=== PATIENT | female | born 1975 | race Caucasian/White ===

== ENCOUNTER 2019-08-04 19:59 | Inpatient (IN) | payer OTHER ==
[~2019-08-04] VITALS: Ht 170.2 cm; Wt 93.4 kg
[2019-08-04 20:03] VITALS: BP 160/90
--- NOTE | 2019-08-04 20:05 | NUR ---
TO ED 05, AMBULATORY, REPORT TO SERA LOYA.
--- NOTE | 2019-08-04 20:10 | NUR ---
PATEINT STATES SHE HAS HAD SUDDEN ONSET ABD PAIN ON AND OFF FOR 1 MONTH. STATES TODAY IT WAS WORSE. PATIENT DIAPHORETIC AND HUNCHED OVER IN PAIN DURING ASSESSMENT. MID ABD TENDERNESS NOTED. 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 NO MEDICAL HX REPORTED. LUNGS CLEAR BILATERALLY. AAO. PATIENT LAYING IN BED, BE LOW LOCKED WITH SIDE RAIL UP ON ONE SIDE. AT BEDSIDE.
[2019-08-04] MEDS ORDERED: NACL 0.9% 1,000 ML IV ONE (20:15)
[2019-08-04] MEDS ORDERED: KETOROLAC 30 MG/ML VIAL IVP ONE (20:15)
[2019-08-04] MEDS ORDERED: ONDANSETRON 4 MG/2 ML VIAL IVP ONE (20:15)
[2019-08-04] MEDS ORDERED: MORPHINE SULFATE 2 MG/ML SYR IVP ONE ×2 (20:35→20:55)
--- NOTE | 2019-08-04 20:35 | NUR ---
PATIENT TAKEN TO CT IN [facility]. WILL GIVE MORPHINE ORDERED UPON RETURN.
--- NOTE | 2019-08-04 20:39 | NUR ---
Note undone in EDM - 08/04/19 at 2039 by NIURKA PATEINT STATES SHE HAS HAD SUDDEN ONSET ABD PAIN ON AND OFF FOR 1 MONTH. STATES TODAY IT WAS WORSE. PATIENT DIAPHORETIC AND HUNCHED OVER IN PAIN DURING ASSESSMENT. MID ABD TENDERNESS NOTED. 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 NO MEDICAL HX REPORTED. LUNGS CLEAR BILATERALLY. AAO. PATIENT LAYING IN BED, BE LOW LOCKED WITH SIDE RAIL UP ON ONE SIDE. AT BEDSIDE.
[2019-08-04 20:41] LABS: BASOPHILS % (AUTO) 0.4 % (0.0-2.0); EOSINOPHILS # (AUTO) 0.1 K/uL (0-0.4); EOSINOPHILS % (AUTO) 0.6 % (0.0-4.0); HEMATOCRIT 37.6 % (36-48); HEMOGLOBIN 12.5 g/dL (12.0-16.0); LYMPHOCYTES # (AUTO) 3.4 K/uL (2.5-16.5); LYMPHOCYTES % (AUTO) 35.3 % (20.5-51.1); MEAN CORPUSCULAR HEMOGLOBIN 26 pg (27-31); MEAN CORPUSCULAR HGB CONC 33 g/dL (33-37); MEAN CORPUSCULAR VOLUME 77.9 fL (80-94); MONOCYTES # (AUTO) 0.6 K/uL (0.8-1.0); MONOCYTES % (AUTO) 6.8 % (1.7-9.3); NEUTROPHILS # (AUTO) 5.4 K/uL (1.8-7.7); NEUTROPHILS % (AUTO) 56.9 % (42.2-75.2); PLATELET COUNT (AUTO) 403 K/uL (140-450); RED BLOOD CELL COUNT(AUTO) 4.83 MIL/uL (4.20-5.40); RED CELL DISTRIBUTION WIDTH 13.7 % (11.6-13.7); WHITE BLOOD COUNT (AUTO) 9.5 K/uL (4.8-10.8)
[2019-08-04 20:55] LABS: BARBITURATE, URINE NEG. ng/ml (NEG <=200); BENZODIAZEPINE, URINE NEG. ng/mL (NEG <=200); CANNABINOID, URINE POS. ng/mL (NEG <=50); COCAINE, URINE NEG. ng/mL (NEG <=300); OPIATE, URINE NEG. ng/mL (NEG <=2000); PHENCYCLIDINE SCREEN,URINE NEG. ng/mL (NEG <=25)
[2019-08-04 20:58] LABS: ALBUMIN 3.4 g/dL (3.4-5.0); ANION GAP 16.4 (8-16); CARBON DIOXIDE 24.7 mmol/L (21-32); CREATININE 0.8 mg/dL (0.6-1.3); POTASSIUM 3.1 mmol/L (3.5-5.1); TOTAL BILIRUBIN 0.3 mg/dL (0.0-1.0)
[2019-08-04] MEDS ORDERED: metroNIDAZOLE 500 MG/NS PREMIX 100 ML IV ONE (21:20)
--- NOTE | 2019-08-04 21:23 | NUR ---
PATIENT NG TUBE PLACED IN LEFT NARE. PATIENT TOLERATED WELL. STOMACH CONTENTS SEEN IN TUBE. Addendum: 08/04/19 at 2123 by NIURKA ASCULATED TO VERIFY PLACEMENT. ORDERED XRAY TO VERIFY PLACEMENT.
[2019-08-04] MEDS ORDERED: diphenhydrAMINE 50 MG/ML VIAL IVP ONE (21:25)
[2019-08-04] MEDS ORDERED: HYDROmorphone PFS 2 MG/ML SYR IVP ONE (21:25)
--- NOTE | 2019-08-04 21:30 | NUR ---
PATIENT STATES CONTINUED PAIN 03/24. DR FOWLER MADE AWARE.
[2019-08-04] MEDS ORDERED: HYDROcodone/APAP 7.5/325 MG 1 TAB PO PRN (21:40)
[2019-08-04] MEDS ORDERED: DOCUSATE SODIUM 100 MG GELCAP PO PRN (21:40)
[2019-08-04] MEDS ORDERED: ACETAMINOPHEN 325 MG TAB PO PRN (21:40)
[2019-08-04] MEDS ORDERED: ONDANSETRON 4 MG/2 ML VIAL IM/IVP PRN (21:40)
--- NOTE | 2019-08-04 21:40 | NUR ---
XRAY AT BEDSIDE.
[2019-08-04] MEDS ORDERED: POTASSIUM CHL 20MEQ/D5-NS 1,000 ML IV SCH (22:00)
[2019-08-04 22:17] LABS: CHOL/HDL RATIO 3.5 (1-4.5); FREE T4 (FREE THYROXINE) 1.07 ng/dL (0.76-1.46); MAGNESIUM 1.8 mg/dL (1.8-2.4); PHOSPHORUS 1.7 mg/dL (2.5-4.9); THYROID STIMULATING HORMONE 4.37 uIU/mL (0.34-3.74)
[2019-08-04 22:31] LABS: PROTHROMBIN TIME 9.3 secs (10.8-13.4)
[2019-08-04 22:35] VITALS: BP 143/78
[2019-08-04 22:35] LABS: APPEARANCE,URINE SL CLOUDY (CLEAR); BILIRUBIN,URINE NEGATIVE (NEGATIVE); BLOOD, URINE TRACE-I (NEGATIVE); COLOR,URINE YELLOW (YELLOW); LEUKOCYTE ESTERASE ,URINE 1+ (NEGATIVE); NITRITE, URINE NEGATIVE (NEGATIVE); PH,URINE 7.5 (5.0-9.0); UGLUCOSE NEGATIVE (NEGATIVE)
--- NOTE | 2019-08-04 22:35 | NUR ---
PATIENT ADMITTED TO BED 112-A MED SURG UNIT. PATIENT ADMITTED UNDER THE CARE OF DR. DEL VALLE. REPORT GIVEN TO OFELIA ZAMORA. PATIENT STABLE AT TIME OF TRANSFER. GAVIN AND SKYLER RUNNING IN [facility].
--- NOTE | 2019-08-04 22:35 | NUR ---
RECEIVED BEDSIDE REPORT FROM SHANTANU DIRECTOR OF GROUP COUNSELING PROGRAM. PT IS AWAKE BUT DROWSY. RESPONDS TO NAME. IS AAOX4. PT'S RESPIRATIONS ARE 12 EQUAL AND UNLABORED. LUNG SOUNDS ARE CLEAR. SKIN IS INTACT. C/C EPIGASTRIC PAIN X1 MO. WORSE TODAY. DX INTUSSUSCEPTION. WILL HAVE EMERGENCY SURGERY TONIGHT WITH SURGEON YAO. PT STATES LAST MEAL WAS TODAY AT 1800 AND HAD A BEER. CURRENTLY DENIES NAUSEA. HAS NGT ON L NOSTRIL TO GRAVITY. IV ON LAC 20G CURRENTLY ON K RIDER FOR K 3.1. PT NPO VERBALIZED UNDERSTANDING. IS AT BEDSIDE. MRSA SWAB OBTAINED. VS: 143/78 HR 87 RR 12 100% RA. PT WITH PAIN 8/10 HAS NOT HAD RELIEF PT RECEIVED MORPHINE BEFORE TRANSFERRING TO FLOOR. WILL REASSESS IN A FEW MINUTES. ORIENTED PT TO ROOM,STAFF, VISITING HOURS, AND CALL LIGHT. HARRISON MANAGER PUBLIC IS AT BEDSIDE ALSO DOING HER ASSESSMENT.
[2019-08-04] MEDS ORDERED: BUPIVACAINE-MPF 0.5% 30 ML VIAL INJ ONE (22:50)
--- NOTE | 2019-08-04 22:50 | NUR ---
PATIENT TAKEN TO OR AT THIS TIME. PT LEFT IN STABLE CONDITION.
[2019-08-04] MEDS ORDERED: ONDANSETRON 4 MG/2 ML VIAL ONE (23:06)
[2019-08-04] MEDS ORDERED: DEXAMETHASONE 4 MG/ML VIAL ONE (23:06)
[2019-08-04] MEDS ORDERED: fentaNYL 0.05 MG/ML VIAL ONE (23:06)
[2019-08-04] MEDS ORDERED: KETOROLAC 30 MG/ML VIAL ONE (23:06)
[2019-08-04] MEDS ORDERED: HYDROmorphone PFS 2 MG/ML SYR ONE (23:06)
[2019-08-04] MEDS ORDERED: SUCCINYLCHOLINE CHLORIDE 200 MG/10 ML VIAL IVP ONE (23:06)
[2019-08-04] MEDS ORDERED: ROCURONIUM 50 MG/5 ML VIAL IV ONE (23:06)
[2019-08-04] MEDS ORDERED: DESFLURANE 240 ML BTL INH ONE (23:06)
[2019-08-04] MEDS ORDERED: PROPOFOL 200 MG/20 ML VIAL IV ONE (23:06)
[2019-08-04 23:49] LABS: WBC,URINE 20-60 /HPF (0-5)
[2019-08-05] MEDS ORDERED: PIPERACILLIN/TAZOBACTAM 2.25 GM VIAL IV ONE (01:58)
[2019-08-05] MEDS ORDERED: HYDROmorphone 1 MG/ML AMP IVP PRN (02:05)
[2019-08-05] MEDS ORDERED: ONDANSETRON 4 MG/2 ML VIAL IVP PRN (02:05)
[2019-08-05 02:35] VITALS: BP 123/65
--- NOTE | 2019-08-05 02:35 | NUR ---
PATIENT IS BACK FROM OR BROUGHT IN BY BED. PT IS AAOX4. RESPIRATIONS ARE EQUAL AND UNLABORED. HAD EXPLORATORY LAPAROTOMY WITH SMALL BOWEL RESECTION WITH DR SAMAYOA. PT WITH VERTICAL INCISION COVERED WITH DRESSING WITH MINIMAL BLOODY DRAINAGE. SURGICAL INCISION WITH RAVIN PER REPORT. VS:123/63 HR 85 98.3 RR 12 DENIES PAIN AT THIS TIME. PT WITH BARRAGAN WAS DRAINED BEFORE COMING. CONNECTED NGT TO INTERMITTENT SUCTION PER ORDERS. IV ON LAC 20G SL AND NEW IV ON R HAND 18G CONNECTED IVF 20MEQKCL/D5NS AT 150M/H FOR K 3.1. MOTHER AND ARE AT BEDSIDE. CALL LIGHT IS WITHIN REACH. WILL CONTINUE TO MONITOR. Addendum: 08/05/19 at 0323 by Tonja Hanna RN RECEIVED BEDSIDE REPORT FROM HARRISON ZAMORA.
[2019-08-05] MEDS: DEXT 5% /NACL 0.9% 1,000 ML IV SCH ×3 (02:54→18:17)
--- NOTE | 2019-08-05 03:20 | NUR ---
VITAL SIGNS ARE WITHIN NORMAL LIMITS. PT IS SLEEPING COMFORTABLY IN BED WITH EYES CLOSED. CHEST RISE AND FALL. CALL LIGHT IS WITHIN REACH. MOTHER IS AT BEDSIDE. WILL CONTINUE TO MONITOR PATIENT'S VITAL SIGNS.
[2019-08-05] MEDS ORDERED: metroNIDAZOLE 500 MG/NS PREMIX 100 ML IV ONE (04:56)
[2019-08-05] MEDS ORDERED: metroNIDAZOLE 250 MG/NS PREMIX 50 ML IV SCH (05:00)
--- NOTE | 2019-08-05 05:02 | NUR ---
FLAGYL IS NOW INFUSING PER ORDERS. PT'S VSS REMAIN WITHIN NORMAL LIMITS. PER PT PAIN HAS IMPROVED SIGNIFICANTLY. PT STATES, "I HAVE A LITTLE BIT OF PAIN FROM SURGERY BUT, IT IS NOTHING COMPARED TO THE PAIN EARLIER. MOTHER IS AT BEDSIDE. CALL LIGHT IS WITHIN REACH. WILL CONTINUE TO MONITOR.
[2019-08-05] MEDS ORDERED: PIPERACILLIN/TAZOBACTAM 3.375 GM VIAL IV ONE (06:02)
[2019-08-05] MEDS: PIPERACILLIN/TAZOBACTAM 3.375 GM in DEXTROSE 5% 50 ML IV SCH ×3 (06:12→18:17)
[2019-08-05 06:20] LABS: BASOPHILS % (AUTO) 0.2 % (0.0-2.0); HEMOGLOBIN 11.1 g/dL (12.0-16.0); LYMPHOCYTES # (AUTO) 0.3 K/uL (2.5-16.5); MEAN CORPUSCULAR HEMOGLOBIN 26 pg (27-31); MEAN CORPUSCULAR HGB CONC 34 g/dL (33-37); MEAN CORPUSCULAR VOLUME 78.3 fL (80-94); MONOCYTES % (AUTO) 5.9 % (1.7-9.3); NEUTROPHILS # (AUTO) 15.2 K/uL (1.8-7.7); NEUTROPHILS % (AUTO) 91.9 % (42.2-75.2); PLATELET COUNT (AUTO) 261 K/uL (140-450); RED BLOOD CELL COUNT(AUTO) 4.22 MIL/uL (4.20-5.40); RED CELL DISTRIBUTION WIDTH 13.6 % (11.6-13.7); WHITE BLOOD COUNT (AUTO) 16.5 K/uL (4.8-10.8)
--- NOTE | 2019-08-05 07:19 | NUR ---
GAVE BEDSIDE REPORT TO DAY RN. PT ENDORSED IN STABLE CONDITION.
--- NOTE | 2019-08-05 07:20 | NUR ---
BEDSIDE REPORT RECEIVED FROM NIGHT NURSE. PATIENT IN STABLE CONDITION. PATIENT IS ASLEEP, EASILY AROUSABLE TO NAME OR TOUCH. SKIN WARM AND DRY TO TOUCH. NGT IN PLACE TO LEFT NOSTRIL, INTERMITTENT SUCTION INTACT WITH NO DRAINAGE NOTED. IV INTACT AND PATENT TO RIGHT HAND AND LEFT AC. ABDOMINAL INCISION INTACT WITH DRY DRESSING. BARRAGAN CATHETER IN PLACE, DRAINING YELLOW COLORED URINE. SAFETY MEASURES IN PLACE. CALL LIGHT WITHIN REACH.
[2019-08-05 07:39] LABS: ANION GAP 13.1 (8-16); CREATININE 0.7 mg/dL (0.6-1.3); POTASSIUM 4.1 mmol/L (3.5-5.1)
[2019-08-05 08:00] VITALS: BP 119/70
--- NOTE | 2019-08-05 08:17 | NUR ---
PATIENT HAS BEEN SCREENED AND CATEGORIZED MODERATE NUTRITION RISK. PATIENT WILL BE SEEN WITHIN 3-5 DAYS OF ADMISSION. 08/07/19 08/09/[address]
[2019-08-05] MEDS ORDERED: INSULIN LISPRO SLIDING SCALE 100 UNITS/ML VIAL SUBQ PRN (08:25)
[2019-08-05] MEDS ORDERED: DEXTROSE 50% 50 ML SYR IVP PRN (08:25)
[2019-08-05 08:30] LABS: CHOL/HDL RATIO 3.3 (1-4.5)
[2019-08-05] MEDS: MORPHINE SULFATE 2 MG/ML SYR IVP PRN ×4 (08:47→18:34)
[2019-08-05] MEDS: PANTOPRAZOLE 40 MG INJ VIAL IVP SCH (08:48)
--- NOTE | 2019-08-05 09:00 | NUR ---
AM MEDICATIONS GIVEN ORDERED. PATIENT IS AAOX4. PATIENT MEDICATED FOR SEVERE PAIN TO ABDOMINAL INCISION. NO DISTRESS NOTED. PT REMAIN STABLE. CALL LIGHT WITHIN REACH. FAMILY AT BEDSIDE.
[2019-08-05] MEDS ORDERED: SODIUM PHOSPHATE 15 MMOLE in NACL 0.9% 250 ML IV SCH (09:30)
[2019-08-05] MEDS: BLOOD GLUCOSE MONITORING 1 DEV DEV FS SCH ×3 (11:56→20:29)
--- NOTE | 2019-08-05 12:00 | NUR ---
PATIENT IS C/O SEVERE PAIN TO ABDOMEN, MEDICATED ORDERED. PATIENT IS AAOX4. NO S/S OF DISTRESS NOTED. NGT INTACT TO LOW INTERMITTENT SUCTIONING. NOTED OUTPUT 100ML, WITH DARK TO BROWN LIQUID. BARRAGAN INTACT AND PATENT WITH CLEAR YELLOW COLORED URINE. SAFETY MEASURES IN PLACE. WILL CONTINUE TO MONITOR. CALL LIGHT WITHIN REACH.
--- NOTE | 2019-08-05 13:55 | NUR ---
DC [age] YRS OLD FEMALE PATIENT WAS ADMITTED FROM HOME WITH A DX OF INTUSSUSCEPTION. HAS A HX OF GESTATIONAL DM AND METRORRHAGIA. CT ABD/PELVIS SHOWED INTUSSUSCEPTION INVOLVING THE SMALL BOWEL IN THE LEFT ABDOMEN. INSERTED NGT STARTED ON IV FLAGYL PAIN CONTROL AND SURGERY CONSULT WITH DR SAMAYOA. DC PLAN TO GO HOME WHEN STABLE CM TO FOLLOW Addendum: 08/08/19 at 1158 by Mar Gipson CM CURRENT LABS INCLUDE WBC 8.0, H/H 9.3/27.4, NA/K 142/3.4, BUN/CREA 4/0.6. UDS SHOWED POSTIVE FOR CANNABINOIDS. SURGICAL CONSULT IN PLACE. POST OP #3 - S/P EX LAP WITH SMALL BOWEL RESECTION. ON ZOSYN. DC PLAN BACK TO HOME ONCE STABLE.
--- NOTE | 2019-08-05 14:17 | NUR ---
NOTIFIED DR. REINA IN REGARDS TO PATIENT HAVING SEVERE PAIN. PATIENT STATED SHE'S STILL HAVING INCREASED PAIN NOW. MORPHINE NOT DUE YET. DOCTOR NOTIFIED, DOCTOR TO SEE PATIENT.
[2019-08-05] MEDS ORDERED: KETOROLAC 30 MG/ML VIAL IVP PRN ×2 (14:20→16:55)
--- NOTE | 2019-08-05 15:46 | NUR ---
PATIENT MEDICATED FOR SEVERE PAIN TO ABDOMINAL INCISION WITH MORPHINE 3MG ORDERED. WILL CONTINUE TO MONITOR.
[2019-08-05 16:00] VITALS: BP 117/57
--- NOTE | 2019-08-05 17:06 | NUR ---
PATIENT IS AWAKE, VERBALLY RESPONSIVE. PATIENT STILL C/O ABDOMINAL PAIN /, MEDICATED WITH TORADOL 30MG IVP. NGT INTACT AND ON INTERMITTENT SUCTION. BARRAGAN CATHETER IN PLACE AND DRAINING CLEAR YELLOW COLORED URINE. CALL LIGHT WITHIN REACH. FAMILY AT BEDSIDE.
--- NOTE | 2019-08-05 18:54 | NUR ---
PATIENT REMAINS IN STABLE CONDITION. WILL ENDORSE TO PORTABLE POWER TOOL REPAIRER FOR CONTINUITY OF CARE.
--- NOTE | 2019-08-05 19:30 | NUR ---
RECEIVED BEDSIDE SHIFT REPORT FROM DAY SHIFT NURSE. TOOK OVER CARE FOR PT. PT IS AWAKE, A&OX4. ABLE TO FOLLOW COMMANDS. NGT IS IN PLACE IN LEFT NOSTRIL CONNECTED TO SUCTION SET ON INTERMITTENT SUCTIONING. SKIN IS DRY, WARM AND INTACT. BARRAGAN CATHETER IS NOTED W/ CLEAR YELLOW URINE W/ NO SEDIMENTS. IV CATHETERS NOTED IN LEFT AC 20G AND RIGHT HAND 18 G. BOTH IV SITES ARE INTACT AND PATENT. PT HAS D5 NS RUNNING AT 100 ML. ABDOMINAL INCISION IS DRY AND INTACT. PT HAS 5/10 ABDOMINAL PAIN. BED IS IN LOWEST POSITION AND LOCKED, PT PLACED IN SEMI FOWLERS POSITION AND CALL LIGHT IS IN REACH. WILL INITIATE PAIN CONTROL MEASURES.
[2019-08-05] MEDS: METHOCARBAMOL 1000 MG/10 ML VIAL IV SCH (20:11)
--- NOTE | 2019-08-05 21:54 | NUR ---
SPOKE W/ MD REGARDING PT C/O SWOLLEN HANDS. MD SAID TO DECREASE IV FLUID FROM 100 ML/HR TO 80 ML/HR.
[2019-08-06] VITALS: BP 110/61
--- NOTE | 2019-08-06 | NUR ---
CHECKED UP ON PT. PT ASLEEP. NO DISTRESS NOTED. BED IS LOWEST POSITION, LOCKED AND CALL LIGHT IS WITHIN REACH. WILL CONTINUE TO MONITOR
[2019-08-06] MEDS: PIPERACILLIN/TAZOBACTAM 3.375 GM in DEXTROSE 5% 50 ML IV SCH ×5 (00:44→23:57)
--- NOTE | 2019-08-06 03:15 | NUR ---
CHECKED IN ON PT. PT ASLEEP. NO DISTRESS NOTED. BED LOCK, LOWEST POSITION, AND CALL LIGHT WITHIN REACH. WILL CONTINUE TO MONITOR
[2019-08-06] MEDS: METHOCARBAMOL 1000 MG/10 ML VIAL IV SCH ×3 (04:10→20:48)
[2019-08-06] MEDS: DEXT 5% /NACL 0.9% 1,000 ML IV SCH (04:38)
[2019-08-06] MEDS: BLOOD GLUCOSE MONITORING 1 DEV DEV FS SCH ×4 (05:44→21:06)
--- NOTE | 2019-08-06 05:45 | NUR ---
ASSESSED PT BG. BG 127. ADMINISTERED SCHEDULED MEDICATIONS. BED LOWEST POSITION, LOCKED AND CALL LIGHT WITHIN REACH. WILL CONTINUE TO MONITOR
[2019-08-06 05:58] LABS: ANION GAP 8.2 (8-16); CREATININE 0.7 mg/dL (0.6-1.3); POTASSIUM 3.2 mmol/L (3.5-5.1)
[2019-08-06 06:02] LABS: MAGNESIUM 1.7 mg/dL (1.8-2.4); PHOSPHORUS 1.6 mg/dL (2.5-4.9)
[2019-08-06 06:41] LABS: BASOPHILS % (AUTO) 0.2 % (0.0-2.0); EOSINOPHILS % (AUTO) 0.1 % (0.0-4.0); HEMOGLOBIN 9.8 g/dL (12.0-16.0); LYMPHOCYTES # (AUTO) 0.9 K/uL (2.5-16.5); MEAN CORPUSCULAR HEMOGLOBIN 26 pg (27-31); MEAN CORPUSCULAR HGB CONC 33 g/dL (33-37); MEAN CORPUSCULAR VOLUME 79.5 fL (80-94); MONOCYTES # (AUTO) 0.8 K/uL (0.8-1.0); MONOCYTES % (AUTO) 6.3 % (1.7-9.3); NEUTROPHILS % (AUTO) 86.4 % (42.2-75.2); PLATELET COUNT (AUTO) 228 K/uL (140-450); RED BLOOD CELL COUNT(AUTO) 3.78 MIL/uL (4.20-5.40); RED CELL DISTRIBUTION WIDTH 14.1 % (11.6-13.7); WHITE BLOOD COUNT (AUTO) 12.7 K/uL (4.8-10.8)
--- NOTE | 2019-08-06 07:22 | NUR ---
ENDORSED PT TO DAY SHIFT NURSE ИВАН ZAMORA, PT STABLE, NO DISTRESS NOTED, CALL LIGHT WITHIN REACH.
--- NOTE | 2019-08-06 07:23 | NUR ---
RECEIVED BEDSIDE REPORT FROM [facility] NURSE JOSELYN. PATIENT IN STABLE CONDITION. SKIN WARM AND DRY TO TOUCH. NGT IN PLACE TO LEFT NOSTRIL, INTERMITTENT SUCTION INTACT WITH NO DRAINAGE NOTED. RESPIRATIONS EVEN AND UNLABORED. IV INTACT AND PATENT. ABDOMINAL INCISION INTACT WITH DRY DRESSING. BARRAGAN CATHETER IN PLACE. SAFETY MEASURES IN PLACE. BED IN LOW POSITION. CALL LIGHT WITHIN REACH AT BEDSIDE. WILL CONTINUE TO MONITOR.
[2019-08-06 08:00] VITALS: BP 119/69
[2019-08-06 08:08] LABS: T4 (THYROXINE) 11.9 ug/dL (4.5-12.0)
[2019-08-06] MEDS ORDERED: MAG SULF 2000 MG/WATER PREMIX 50 ML IV SCH (08:30)
[2019-08-06 09:06] LABS: HEPATITIS A ANTIBODY IGM Negative (Negative); HEPATITIS B CORE AB TOTAL Negative (Negative); HEPATITIS B SURFACE ANTIBODY Non Reactive (.); HEPATITIS B SURFACE ANTIGEN Negative (Negative)
[2019-08-06] MEDS: PANTOPRAZOLE 40 MG INJ VIAL IVP SCH (09:06)
--- NOTE | 2019-08-06 09:25 | NUR ---
XR AT BEDSIDE FOR ACUTE ABD SERIES. PT IN STABLE CONDITION.
[2019-08-06] MEDS: POTASSIUM CHL 20 MEQ/D5-1/2NS 1,000 ML IV SCH ×2 (10:50→19:51)
[2019-08-06] MEDS ORDERED: POTASSIUM PHOSPHATE 15 MM in NACL 0.9% 250 ML IV SCH (11:00)
[2019-08-06] MEDS ORDERED: CALCIUM CHLORIDE 10% 1,000 MG in NACL 0.9% 100 ML IV SCH (11:00)
--- NOTE | 2019-08-06 11:30 | NUR ---
REMOVED BARRAGAN AT THIS TIME. PT TOLERATED WELL.
[2019-08-06] MEDS: MORPHINE SULFATE 2 MG/ML SYR IVP PRN ×2 (11:37→15:45)
--- NOTE | 2019-08-06 11:52 | NUR ---
ASSISTED PT WITH AMBULATING. PT AMBULATED OUT OF ROOM ABOUT 10FT. PT REQUEST TO RETURN TO ROOM DUE TO FEELING DIZZY. WILL CONTINUE TO MONITOR.
--- NOTE | 2019-08-06 13:42 | NUR ---
ASSISTED TO RESTROOM AT THIS TIME. PT TOLERATED WELL. WILL CONTINUE TO MONITOR.
[2019-08-06 16:00] VITALS: BP 123/68
--- NOTE | 2019-08-06 19:29 | NUR ---
GAVE REPORT TO DIRECTOR OF TRANSPORTATION NURSE RIN FOR CONTINUITY OF CARE. PT IN STABLE CONDITION.
--- NOTE | 2019-08-06 19:30 | NUR ---
RECEIVED BEDSIDE REPORT FROM DAY SHIFT NURSE AND TOOK OVER CARE OF PT. PT IS A&OX4, ABLE TO FOLLOW COMMANDS. NGT IN PLACE IN LEFT NOSTRIL CONNECTED TO SUCTION. 250 ML INSIDE SUCTION CONTAINER NOTED. PT IS AMBULATORY AND IS ABLE TO WALK TO BATHROOM W/ ASSISTANCE. PT HAS RIGHT AC 20G, ASYMPTOMATIC, PATENT AND INTACT. ABDOMINAL DRESSINGS IS CDI. PT IS UNABLE TO HAVE FLATUS. UNABLE TO DEFECATE. PT STATED SHE HAS 6/10 ABDOMINAL PAIN. BED IS SEMI FOWLERS IN LOWEST POSITION, LOCKED. LIFESAVING EQUIPMENT IS PLUGGED IN RED OUTLETS. CALL LIGHT IS WITHIN REACH.
--- NOTE | 2019-08-06 22:00 | NUR ---
CHECKED UP ON PT. PT ASLEEP IN SEMI FOWLERS POSITION. BED IN LOWEST POSITION, LOCKED. CALL LIGHT WITHIN REACH. WILL CONTINUE TO MONITOR PT.
[2019-08-07] VITALS: BP 118/71
--- NOTE | 2019-08-07 | NUR ---
CHECKED ON PT. PT ASLEEP. BED IN LOWEST SETTING, LOCKED. CALL LIGHT WITHIN REACH. WILL CONTINUE TO MONITOR
--- NOTE | 2019-08-07 03:00 | NUR ---
CHECKED IN ON PT. PT IN NEED TO VOID. ASSISTED PT TO RESTROOM. NGT RESIDUAL AT 150 ML. Addendum: 08/07/19 at 0406 by Rafael Cohen RN RN PT HAD ABDOMINAL PAIN. SEE PAIN ASSESSMENT/REASSESSMENT
[2019-08-07] MEDS: MORPHINE SULFATE 2 MG/ML SYR IVP PRN ×3 (03:02→15:27)
--- NOTE | 2019-08-07 04:02 | NUR ---
CHECKED ON PT. PT ASLEEP. BED IN LOWEST SETTING, LOCKED. CALL LIGHT WITHIN REACH. WILL CONTINUE TO MONITOR
[2019-08-07] MEDS: METHOCARBAMOL 1000 MG/10 ML VIAL IV SCH ×3 (05:34→20:46)
[2019-08-07] MEDS: PIPERACILLIN/TAZOBACTAM 3.375 GM in DEXTROSE 5% 50 ML IV SCH ×4 (05:35→23:38)
[2019-08-07 06:02] LABS: BASOPHILS % (AUTO) 0.3 % (0.0-2.0); EOSINOPHILS # (AUTO) 0.1 K/uL (0-0.4); EOSINOPHILS % (AUTO) 0.5 % (0.0-4.0); HEMATOCRIT 28.9 % (36-48); HEMOGLOBIN 9.8 g/dL (12.0-16.0); LYMPHOCYTES # (AUTO) 0.8 K/uL (2.5-16.5); LYMPHOCYTES % (AUTO) 7.2 % (20.5-51.1); MEAN CORPUSCULAR HEMOGLOBIN 26 pg (27-31); MEAN CORPUSCULAR HGB CONC 34 g/dL (33-37); MONOCYTES # (AUTO) 0.7 K/uL (0.8-1.0); MONOCYTES % (AUTO) 6.3 % (1.7-9.3); NEUTROPHILS # (AUTO) 9.7 K/uL (1.8-7.7); NEUTROPHILS % (AUTO) 85.7 % (42.2-75.2); PLATELET COUNT (AUTO) 233 K/uL (140-450); RED CELL DISTRIBUTION WIDTH 13.6 % (11.6-13.7); WHITE BLOOD COUNT (AUTO) 11.3 K/uL (4.8-10.8)
[2019-08-07 06:34] LABS: MAGNESIUM 1.9 mg/dL (1.8-2.4); PHOSPHORUS 1.7 mg/dL (2.5-4.9)
[2019-08-07 06:47] LABS: ANION GAP 11.7 (8-16); CARBON DIOXIDE 25.8 mmol/L (21-32); CREATININE 0.8 mg/dL (0.6-1.3); POTASSIUM 3.5 mmol/L (3.5-5.1)
[2019-08-07] MEDS: POTASSIUM CHL 20 MEQ/D5-1/2NS 1,000 ML IV SCH ×2 (06:50→15:10)
--- NOTE | 2019-08-07 06:59 | NUR ---
PT CAME OUT OF THE TOILET WITH NGT ON HER HAND, STATED TO DONY DUQUE THAT IT JUST CAME OUT, AND STATED SHE DOESN'T WANT IT BACK BECAUSE HER THROAT IS ALREADY HURTING, DR HOROWITZ MADE AWARE, STATED WILL CHECK PT.
--- NOTE | 2019-08-07 07:15 | NUR ---
PT AWAKE SITTING UP ON BED, NO SIGNS OF DISTRESS, REPORT GIVEN TO SERA OATES FOR CONTINUITY OF CARE.
--- NOTE | 2019-08-07 07:16 | NUR ---
RECEIVED BEDSIDE REPORT FROM EMPLOYMENT CONSULTANT NURSE RIN. PATIENT IN STABLE CONDITION. SKIN WARM AND DRY TO TOUCH. RESPIRATIONS EVEN AND UNLABORED. IV INTACT AND PATENT. ABDOMINAL INCISION INTACT WITH DRY DRESSING. SAFETY MEASURES IN PLACE. BED IN LOW POSITION. CALL LIGHT WITHIN REACH AT BEDSIDE. WILL CONTINUE TO MONITOR.
[2019-08-07] MEDS: BLOOD GLUCOSE MONITORING 1 DEV DEV FS SCH ×4 (07:30→20:52)
[2019-08-07 08:00] VITALS: BP 132/75
[2019-08-07] MEDS: PANTOPRAZOLE 40 MG INJ VIAL IVP SCH (09:04)
--- NOTE | 2019-08-07 09:20 | NUR ---
ADMINISTERED PRN PAIN MEDICATION PER PATIENT REQUEST. PT TOLERATED WELL. NO SIGNS OF DISTRESS NOTED. PT RESPIRATIONS EVEN AND UNLABORED. WILL CONTINUE TO MONITOR.
--- NOTE | 2019-08-07 10:30 | NUR ---
Darian VILLELA AT BEDSIDE FOR WOUND ASSESSMENT AND DRESSING CHANGE. PATIENT TOLERATED WELL. NO SIGNS OF DISTRESS NOTED.
--- NOTE | 2019-08-07 12:37 | NUR ---
PT EATING LUNCH CLEAR LIQUID DIET. TOLERATING WELL. BED IN LOW POSITION. CALL LIGHT AT BEDSIDE. WILL CONTINUE TO MONITOR.
--- NOTE | 2019-08-07 13:55 | NUR ---
ASSISTED TO RESTROOM AT THIS TIME. PT TOLERATED WELL. WILL CONTINUE TO MONITOR.
--- NOTE | 2019-08-07 15:23 | NUR ---
ASSISTED TO RESTROOM AT THIS TIME. PT TOLERATED WELL. WILL CONTINUE TO MONITOR.
--- NOTE | 2019-08-07 15:27 | NUR ---
ADMINISTERED PRN PAIN MEDICATION PER PATIENT REQUEST. PATIENT TOLERATED WELL. NO SIGNS OF DISTRESS NOTED. RESPIRATIONS EVEN AND UNLABORED. BED IN LOW POSITION AND CALL LIGHT AT BEDSIDE. WILL CONTINUE TO MONITOR.
[2019-08-07 16:00] VITALS: BP 123/77
--- NOTE | 2019-08-07 16:39 | NUR ---
PT IS AMBULATING AROUND THE UNIT WITH FAMILY. NO DISTRESS NOTED. PATIENT IN STABLE CONDITION. WILL CONTINUE TO MONITOR
--- NOTE | 2019-08-07 18:14 | NUR ---
PT PASSING GAS AT THIS TIME. WILL CONTINUE TO MONITOR.
--- NOTE | 2019-08-07 19:30 | NUR ---
RECEIVED PT ON BED, ON HIGH FOWLERS POSITION, PT IN PAIN BUT CAN WAIT FOR THE NEXT ROBAXIN DOSE, PT STATED PASSING GAS AND BURPING TODAY, TOLERATING CLEAR LIQUID DIET, IVF INFUSING WELL, ABDOMINAL DRESSING DRY AND INTACT, ABDOMINAL BINDER IN PLACE, PLAN OF CARE DISCUSSED, SAFETY MEASURES IN PLACE, CALL LIGHT WITHIN REACH.
--- NOTE | 2019-08-07 19:39 | NUR ---
GAVE REPORT TO GROUNDS MAINTENANCE MANAGER NURSE RIN FOR CONTINUITY OF CARE. PT IN STABLE CONDITION.
--- NOTE | 2019-08-07 20:20 | NUR ---
PT AMBULATED TO BR WITH STANDBY ASSIST, VOIDED FREELY, PT STATED STARTED HAVING MINIMAL BLEEDING DUE TO MENSTRUAL CYCLE, SANITARY PAD PROVIDED, ALL NEEDS ATTENDED.
--- NOTE | 2019-08-07 20:55 | NUR ---
BLOOD SUGAR CHECKED WITH 123 RESULT, DUE ROBAXIN IVP GIVEN FOR PAIN, PT COMFORTABLE ON BED AT THIS TIME, MONITORED CLOSELY.
--- NOTE | 2019-08-07 23:40 | NUR ---
DUE ZOSYN IVPB ADMINISTERED, DENIES ANY PAIN AT THIS TIME, PT MADE AWARE THAT I HAVE TO TAKE A PICTURE OF HER INCISION, PT STATED NOT RIGHT NOW STATED FIRST DRESSING CHANGE WAS DONE EARLIER, WANTS IT DURING THE NEXT DRESSING CHANGE, CHARGE NURSE MILES MADE AWARE AND WILL ENDORSE TO AM NURSE.
[2019-08-08] VITALS: BP 120/74
[2019-08-08] MEDS: METHOCARBAMOL 1000 MG/10 ML VIAL IV SCH ×2 (04:07→13:01)
--- NOTE | 2019-08-08 04:07 | NUR ---
PT SLEEPING, EASILY AROUSABLE, DUE ROBAXIN ADMINISTERED VIA SLOW IV PUSH, PT STATED CONTINUE TO PASS GAS AND FEEL LESS BLOATED, MONITORED CLOSELY.
--- NOTE | 2019-08-08 04:49 | NUR ---
PT COMPLAINING OF NAUSEA, NO VOMITING NOTED, STATED STILL PASSING GAS, MEDICATED PRN WITH ZOFRAN IVP, MONITORED CLOSELY.
[2019-08-08] MEDS: PIPERACILLIN/TAZOBACTAM 3.375 GM in DEXTROSE 5% 50 ML IV SCH ×2 (05:14→11:55)
[2019-08-08] MEDS: POTASSIUM CHL 20 MEQ/D5-1/2NS 1,000 ML IV SCH (05:14)
--- NOTE | 2019-08-08 05:15 | NUR ---
DUE ZOSYN IVPB ADMINISTERED, VERBALIZED NAUSEA RELIEF AFTER ZOFRAN, BLOOD SUGAR CHECKED WITH 114 RESULT, IVF INFUSING WELL, DRESSING DRY AND INTACT, ABDOMINAL BINDER IN PLACE, MONITORED CLOSELY.
[2019-08-08] MEDS: BLOOD GLUCOSE MONITORING 1 DEV DEV FS SCH (06:33)
[2019-08-08 07:21] LABS: BASOPHILS # (AUTO) 0.1 K/uL (0.00-0.22); BASOPHILS % (AUTO) 0.7 % (0.0-2.0); EOSINOPHILS # (AUTO) 0.2 K/uL (0-0.4); EOSINOPHILS % (AUTO) 1.9 % (0.0-4.0); HEMATOCRIT 27.4 % (36-48); HEMOGLOBIN 9.3 g/dL (12.0-16.0); LYMPHOCYTES # (AUTO) 0.8 K/uL (2.5-16.5); LYMPHOCYTES % (AUTO) 9.8 % (20.5-51.1); MEAN CORPUSCULAR HEMOGLOBIN 26 pg (27-31); MEAN CORPUSCULAR HGB CONC 34 g/dL (33-37); MEAN CORPUSCULAR VOLUME 77.5 fL (80-94); MONOCYTES # (AUTO) 0.6 K/uL (0.8-1.0); NEUTROPHILS # (AUTO) 6.4 K/uL (1.8-7.7); NEUTROPHILS % (AUTO) 79.6 % (42.2-75.2); PLATELET COUNT (AUTO) 240 K/uL (140-450); RED BLOOD CELL COUNT(AUTO) 3.53 MIL/uL (4.20-5.40); RED CELL DISTRIBUTION WIDTH 13.7 % (11.6-13.7)
--- NOTE | 2019-08-08 07:23 | NUR ---
PT AWAKE, NO SIGNS OF DISTRESS, BEDSIDE REPORT GIVEN TO SERA EDEN FOR CONTINUITY OF CARE.
--- NOTE | 2019-08-08 07:24 | NUR ---
RECEIVED PATIENT FROM WATERWAY TRAFFIC CHECKER NURSE FOR CONTINUITY OF CARE. PATIENT IS AWAKE, ICELANDIC SPEAKING. RESPIRATIONS EVEN AND UNLABORED, ROOM AIR. VISIBLE CHEST RISE NOTED. MED-SURG. ABDOMEN SOFT, ROUND, TENDER. BOWEL SOUNDS HYPOACTIVE. S/P LAP CHOLECYSTECTOMY, STAPLED. DRESSING DRY AND INTACT. ABDOMINAL BINDER IN PLACE. AMBULATORY WITH ASSIST, UNIVERSAL FALL PRECAUTIONS. BED IN LOW POSITION. CALL LIGHT IS WITHIN REACH. WILL CONTINUE TO MONITOR.
[2019-08-08 07:51] LABS: ANION GAP 8.9 (8-16); CARBON DIOXIDE 29.5 mmol/L (21-32); CREATININE 0.6 mg/dL (0.6-1.3); POTASSIUM 3.4 mmol/L (3.5-5.1)
[2019-08-08 08:00] VITALS: BP 122/77
--- NOTE | 2019-08-08 08:00 | NUR ---
HELPED PATIENT AMBULATE TO THE BATHROOM TO VOID.
[2019-08-08] MEDS: PANTOPRAZOLE 40 MG INJ VIAL IVP SCH (08:38)
--- NOTE | 2019-08-08 08:38 | NUR ---
GIVEN PROTONIX VIA IVP SCHEDULED. EXPLAINED TO PATIENT MED AND SIDE EFFECTS. PATIENT VERBALIZED UNDERSTANDING.BED IN LOW POSITION. CALL LIGHT IS WITHIN REACH. WILL CONTINUE TO MONITOR
[2019-08-08] MEDS: NACL 0.9% 1,000 ML IV SCH ×2 (09:20→20:24)
[2019-08-08] MEDS ORDERED: SODIUM PHOSPHATE 15 MMOLE in NACL 0.9% 250 ML IV SCH (10:00)
--- NOTE | 2019-08-08 10:20 | NUR ---
HANG SODIUM PHOSPHATE VIA IVPB. PHOSPHORUS LEVEL IS 1.7. EXPLAINED TO PATIENT FAMILY MED AND SIDE EFFECTS. PATIENT AND FAMILY VERBALIZED UNDERSTANDING. WILL CONTINUE TO MONITOR.
--- NOTE | 2019-08-08 11:55 | NUR ---
HANG ZOSYN VIA IVPB SCHEDULED. EXPLAINED TO PATIENT MED AND SIDE EFFECTS. PATIENT VERBALIZED UNDERSTANDING. WILL CONTINUE TO MONITOR
[2019-08-08] MEDS: MORPHINE SULFATE 2 MG/ML SYR IVP PRN (12:30)
--- NOTE | 2019-08-08 12:30 | NUR ---
GIVEN MORPHINE FOR 810 ABDOMINAL PAIN. EXPLAINED TO PT MED AND SIDE EFFECTS. PATIENT VERBALIZED UNDERSTANDING. BED IN LOW POSITION. WILL CONTINUE TO MONITOR
--- NOTE | 2019-08-08 12:56 | NUR ---
TAKEN PICTURE OF SURGICAL RAVIN. CHANGED DRESSING. PATIENT TOLERATED WELL.
--- NOTE | 2019-08-08 13:03 | NUR ---
GIVEN ROBAXIN IVP FOR 3 MINUTES. INSTRUCTED TO HAVE PATIENT LIE BEFORE AND AFTER MEDICATION ADMINISTRATION. EXPLAIN MED AND SIDE EFFECTS. PATIENT VERBALIZED UNDERSTANDING. BED IN LOW POSITION. CALL LIGHT IS WITHIN REACH
--- NOTE | 2019-08-08 13:30 | NUR ---
REASSESSED PAIN. PATIENT STATED 2/10 PAIN, TOLERABLE PAIN. WILL CONTINUE TO MONITOR. FAMILY AT BEDSIDE
--- NOTE | 2019-08-08 14:00 | NUR ---
HELPED PATIENT TO AMBULATE TO THE BATHROOM TO VOID. PATIENT STATED IT PAINS HER TO MOVE. REFUSED TO HAVE ANOTHER MORE PAIN MEDICATIONS. FAMILY AT BEDSIDE. WILL CONTINUE TO MONITOR
--- NOTE | 2019-08-08 15:48 | NUR ---
PATIENT IS AWAKE TALKING TO FAMILY MEMBER AT BEDSIDE. WILL CONTINUE TO MONITOR
[2019-08-08 16:00] VITALS: BP 133/76
[2019-08-08] MEDS ORDERED: POTASSIUM CHLORIDE 20% 40 MEQ/15 ML UDC PO SCH (17:00)
--- NOTE | 2019-08-08 18:34 | NUR ---
DR. SAMAYOA MADE A VERBAL ORDER TO CHANGE PATIENT'S DIET TO REGULAR. ALSO RAVIN INTACT, APPLY BETADINE AND OPEN TO AIR
--- NOTE | 2019-08-08 19:05 | NUR ---
PT SITTING UP IN BED IN STABLE CONDITION. RECEIVED REPORT FROM [facility] DAYSHIFT NURSE AT BEDSIDE FOR CONTINUITY OF CARE. PT C/OF NUMBNESS IN FEET AND HANDS, WILL SPEAK TO RESIDENT MD. V/S FOLLOWS: T 98.7 P 95 R 18 B/P 128/80 02 95%. PT WAS GOING TO AMBULATE, BUT STOPPED WHEN SHE FELT THE NUMBNESS AND TINGLING. ALL FALLS PRECAUTIONS IN PLACE.
--- NOTE | 2019-08-08 19:13 | NUR ---
ENDORSED PATIENT TO THE STRAW BOSS NURSE MILES FOR CONTINUITY OF CARE. PATIENT IS IN STABLE CONDITION
--- NOTE | 2019-08-08 20:00 | NUR ---
SPOKE WITH MD DR. BARBER, HE WAS MADE AWARE OF NUMBNESS AND TINGLING, HE SUGGESTED PT AMBULATE IN THE HALLWAY. PT ALSO MADE AWARE OF THE SIDE EFFECTS OF HER MEDICATION. ALL REQUESTED NEEDS ATTENDED BY STAFF. AND CALL YAN IN REACH. LABS REVIEWED, FLUIDS CHANGED FORM N/S WITH POTASSIUM TO JUST NORMAL SALINE SOLUTION AT 80MLS/HR. RAVIN INTACT AND ASYMPTOMATIC IV SITE INTACT AND FLUSHED PATENT.
--- NOTE | 2019-08-08 20:30 | NUR ---
PT UP AND AMBULATING IN HALLWAY WITH ASSISTANCE, PT SAYS SHE FEELS BETTER.
--- NOTE | 2019-08-08 22:30 | NUR ---
PT IN BED SLEEPING, SHE WOKE UP AND WAS ASSISTED TO BATHROOM AND BACK. PT RAVIN INTACT AND ASYMPTOMATIC. PT DENIES ANY PAIN, ALL REQUESTED NEEDS ATTENDED BY STAFF. IV SITE INTACT AND RUNNING N/S AT 80MLS/HR. ALL UNIVERSAL FALLS PRECAUTIONS IN PLACE.
[2019-08-09] VITALS: BP 122/75
--- NOTE | 2019-08-09 | NUR ---
PT IN BED ASLEEP NO S/S OF PAIN OR DISTRESS NOTED. IV FLUIDS RUNNING ORDERED. V/S ORDERED T 98.4 P 95 R 18 B/P 122/75 02 98% ON ROOM AIR. ALL UNIVERSAL FALLS PRECAUTIONS IN PLACE WELL SCD'S.
--- NOTE | 2019-08-09 02:57 | NUR ---
PT IN BED SLEEPING NO S/S OF PAIN OR DISTRESS NOTED. ALL UNIVERSAL FALLS PRECAUTIONS IN PLACE.
--- NOTE | 2019-08-09 06:00 | NUR ---
PT IN BED AWAKE FOR BLOOD DRAWS. IV SITE INTACT AND RUNNING FLUIDS ORDERED. ALL UNIVERSAL FALLS PRECAUTIONS IN PLACE,
--- NOTE | 2019-08-09 07:12 | NUR ---
RECEIVED PATIENT FROM INSURANCE RISK MANAGER NURSE FOR CONTINUITY OF CARE. PATIENT IS AWAKE, MALTESE SPEAKING. RESPIRATIONS EVEN AND UNLABORED, ROOM AIR. VISIBLE CHEST RISE NOTED. MED-SURG. ABDOMEN SOFT, ROUND, TENDER. BOWEL SOUNDS HYPOACTIVE. S/P LAP CHOLECYSTECTOMY, RAVIN INTACT. OPEN TO AIR. AMBULATORY WITH ASSIST, UNIVERSAL FALL PRECAUTIONS. BED IN LOW POSITION. CALL LIGHT IS WITHIN REACH. WILL CONTINUE TO MONITOR
[2019-08-09 07:23] LABS: BASOPHILS % (AUTO) 0.4 % (0.0-2.0); EOSINOPHILS # (AUTO) 0.2 K/uL (0-0.4); EOSINOPHILS % (AUTO) 3.9 % (0.0-4.0); HEMATOCRIT 29.3 % (36-48); HEMOGLOBIN 9.5 g/dL (12.0-16.0); LYMPHOCYTES # (AUTO) 1.2 K/uL (2.5-16.5); LYMPHOCYTES % (AUTO) 20.5 % (20.5-51.1); MEAN CORPUSCULAR HEMOGLOBIN 26 pg (27-31); MEAN CORPUSCULAR HGB CONC 32 g/dL (33-37); MEAN CORPUSCULAR VOLUME 81.4 fL (80-94); MONOCYTES # (AUTO) 0.6 K/uL (0.8-1.0); MONOCYTES % (AUTO) 10.3 % (1.7-9.3); NEUTROPHILS # (AUTO) 3.8 K/uL (1.8-7.7); NEUTROPHILS % (AUTO) 64.9 % (42.2-75.2); PLATELET COUNT (AUTO) 292 K/uL (140-450); RED BLOOD CELL COUNT(AUTO) 3.61 MIL/uL (4.20-5.40); RED CELL DISTRIBUTION WIDTH 13.5 % (11.6-13.7); WHITE BLOOD COUNT (AUTO) 5.8 K/uL (4.8-10.8)
[2019-08-09 07:26] LABS: ANION GAP 10.4 (8-16); CARBON DIOXIDE 27.9 mmol/L (21-32); CREATININE 0.6 mg/dL (0.6-1.3); POTASSIUM 4.3 mmol/L (3.5-5.1)
[2019-08-09 08:00] VITALS: BP 122/73
[2019-08-09] MEDS: PANTOPRAZOLE 40 MG INJ VIAL IVP SCH (08:42)
--- NOTE | 2019-08-09 08:42 | NUR ---
GIVEN PROTONIX VIA IVP SCHEDULED. EXPLAINED TO PATIENT MED AND SIDE EFFECTS. PATIENT VERBALIZED UNDERSTANDING. WILL CONTINUE TO MONITOR
[2019-08-09] MEDS: NACL 0.9% 1,000 ML IV SCH (10:20)
--- NOTE | 2019-08-09 10:23 | NUR ---
ASSISTED PATIENT TO AMBULATE TO THE RESTROOM.
[2019-08-09] MEDS ORDERED: ONDA4TAB PO (10:41)
[2019-08-09] MEDS ORDERED: DOCU-299 PO (10:41)
[2019-08-09] MEDS ORDERED: HYDR-5122 PO (10:41)
[2019-08-09 11:25] VITALS: BP 122/73
[2019-08-09] MEDS ORDERED: SODIUM PHOS / POTASSIUM PHOS 1 PKT PDR PO SCH (11:25)
--- NOTE | 2019-08-09 11:37 | NUR ---
GIVEN NEUTRA-PHOS. EXPLAINED TO PATIENT MED. PATIENT VERBALIZED UNDERSTANDING. WILL CONTINUE TO MONITOR
--- NOTE | 2019-08-09 12:05 | NUR ---
PATIENT IS SHOWERING AT THIS MOMENT. COVER SURGICAL INCISION AND IV SITE WITH PLASTIC BAG TO PREVENT WETTING. MOM IS ASSISTING PATIENT
--- NOTE | 2019-08-09 12:55 | NUR ---
BACK FROM SHOWER. PATIENT STATED SHE'LL EAT FIRST BEFORE SIGNING THE DISCHARGE PAPERWORKS
--- NOTE | 2019-08-09 14:23 | NUR ---
CLEANED WOUND WITH BETADINE, PAT DRIED, AND OPEN TO AIR. DISCONTINUED IV AND REMOVED ID BAND. PATIENT REFUSED FLU VACCINE. PNA VACCINE IS NOT APPLICABLE.
--- NOTE | 2019-08-09 14:25 | NUR ---
GIVEN DISCHARGE INSTRUCTIONS. INSTRUCTED PATIENT TO NOT SWIM, HOT TUBS BECAUSE OF THE SURGICAL INCISION. EXPLAINED THAT SHE HAS APPT WITH HER PCP THIS AND TO FOLLOW UP WITH DR. SAMAYOA. EXPLAINED THAT RESIDENT DOCTOR PRESCRIBED MEDICATIONS AND THAT SHE NEEDS TO MARKETING RECRUITER FROM HER PREFERRED PHARMACY. PATIENT VERBALIZED UNDERSTANDING. NO FUTHER QUESTIONS.
--- NOTE | 2019-08-09 14:32 | NUR ---
DISCHARGED PATIENT VIA WHEELCHAIR. PATIENT DENIES ANY PAIN. NO SOB. FAMILY IS WITH PATIENT. WILL DRIVE HOME. PATIENT IS IN STABLE CONDITION.
== END 2019-08-09 14:25 | disposition home or self-care (01) | DRG 330 ==
LOC: MED 19:59 → MTU 21:37
PROVIDERS: ADMIT General Practice; ATTEND General Practice
PROC: 0DS80ZZ Reposition Small Intestine, Open Approach (ICD-10-PCS; principal; 2019-08-05)
PROC: 3E1M38Z Irrigation of Peritoneal Cavity using Irrigating Substance, Percutaneous Approach (ICD-10-PCS; 2019-08-05)
DX: K56.1 Intussusception (principal); N39.0 Urinary tract infection, site not specified; D72.829 Elevated white blood cell count, unspecified; E83.51 Hypocalcemia; K44.9 Diaphragmatic hernia without obstruction or gangrene; E27.8 Other specified disorders of adrenal gland; I10 Essential (primary) hypertension; E87.6 Hypokalemia; E83.39 Other disorders of phosphorus metabolism; E02 Subclinical iodine-deficiency hypothyroidism; E78.5 Hyperlipidemia, unspecified; Z86.32 Personal history of gestational diabetes; R73.03 Prediabetes
CPT/HCPCS: 36415; 71045; 74021; 74022; 80048; 80053; 80305; 81001; 82150; 82948; 83036; 83690; 83735; 83880; 84100; 84436; 84439; 84443; 84479; 84484; 85025; 85610; 85730; 86704; 86706; 86708; 86709; 86803; 86886; 86900; 86901; 87040; 87081; 87086; 87340; 88307; 96361; 96365; 96375; 99291; C9113; J0330; J1100; J1170; J1200; J1815; J1885; J2270; J2405; J2543; J2704; J2800; J3010; J3475; J3490; J7030; J7042; J7060; Q0092

== ENCOUNTER 2023-02-19 12:50 | Emergency (ER) | payer OTHER ==
[~2023-02-19] VITALS: Ht 170.2 cm; Wt 78.0 kg
[~2023-02-19 12:50] MED LIST: DOCU-299 PO; HYDR-5122 PO; ONDA4TAB PO
[2023-02-19 13:04] VITALS: BP 150/96; PULSE 87; RESP 16; TEMP 97.1; O2SAT 100
[2023-02-19] MEDS ORDERED: IBUPROFEN 600 MG TAB PO ONE (13:35)
[2023-02-19] MEDS ORDERED: CYCLOBENZAPRINE 10 MG TAB PO ONE (13:35)
[2023-02-19] MEDS ORDERED: IBUP-2218 PO (15:44)
[2023-02-19] MEDS ORDERED: CYCL-711 PO (15:44)
[2023-02-19] MEDS ORDERED: LID5T TP (15:44)
[2023-02-19 16:02] VITALS: BP 141/84; PULSE 74; RESP 14; TEMP 97.3; O2SAT 98
== END 2023-02-19 13:48 | disposition home or self-care (01) ==
LOC: MED 12:50
DX: M54.2 Cervicalgia (principal); Z79.899 Other long term (current) drug therapy; Z88.8 Allergy status to other drugs, medicaments and biological substances
CPT/HCPCS: 72040; 99283